=== PATIENT | male | born 1945 | race Caucasian/White ===

== ENCOUNTER 2020-02-21 03:04 | Inpatient (IN) | payer OTHER ==
[~2020-02-21] VITALS: Ht 167.6 cm; Wt 66.1 kg
[~2020-02-21 03:04] MED LIST: AUGMENTIN 875-1 EACH PO; AUGMENTIN 875875 M1 PO; LIPITOR20 MG PO; LISINOPRIL20 MG PO; NORCO 5-325 TA1 EACH PO
[2020-02-21 03:05] VITALS: BP 149/86
[2020-02-21] MEDS ORDERED: NAPROSYN500 M1 PO (03:08)
[2020-02-21 03:49] LABS: ABSOLUTE NEUTROPHILS 16.2 thou/uL (1.4-8.2); BASOPHILS 0.2 % (0.0-2.0); CALCIUM 8.5 mg/dL (8.5-10.1); CREATININE 1.3 mg/dL (0.7-1.3); HEMATOCRIT 47.8 % (42.0-52.0); HEMOGLOBIN 16.4 gm/dL (14.0-18.0); LYMPHOCYTES 6.2 % (24.0-44.0); MCH 28.4 pg (26.0-34.0); MCHC 34.3 g/dL (28.0-37.0); MCV 82.7 fL (80.0-100.0); MONOCYTES 3.8 % (1.0-8.0); PLATELET COUNT 261 thou/uL (150-400); POLYS 89.8 % (36.0-66.0); POTASSIUM 4.1 mmol/L (3.5-5.1); RBC 5.78 mil/uL (4.50-6.00); RDW 13.5 % (10.5-14.5)
[2020-02-21 03:53] LABS: APTT 27.7 Seconds (24.5-32.8); INR 1.1; PROTIME 10.9 Seconds (9.3-11.4)
[2020-02-21 03:55] LABS: ALBUMIN 3.7 g/dL (3.4-5.0); TOTAL BILIRUBIN 1.2 mg/dL (0.2-1.0)
[2020-02-21 04:58] VITALS: BP 127/87
[2020-02-21 07:08] VITALS: BP 149/76
--- NOTE | 2020-02-21 07:24 | NUR ---
Pt arrived from ED at 0530 via cart accompanied by staff. Pt is A/OX4, VSS. Admission paperwork completed w/o problems. Pt is up ad shabana,fall safety education reinforced and pt agreeable to call for help as needed. Pt passing small bright red blood frequently every time he goes to the bathroom,denies any lightheadedness/dizziness. IVF/Protonix infusing via LAC w/o any problems. Will continue to monitor pt.
[2020-02-21 10:31] LABS: ABSOLUTE NEUTROPHILS 14.3 thou/uL (1.4-8.2); BASOPHILS 0.1 % (0.0-2.0); EOSINOPHILS 0.1 % (0.0-3.0); HEMATOCRIT 44.1 % (42.0-52.0); HEMOGLOBIN 15.1 gm/dL (14.0-18.0); LYMPHOCYTES 6.9 % (24.0-44.0); MCH 28.5 pg (26.0-34.0); MCHC 34.3 g/dL (28.0-37.0); MCV 83.1 fL (80.0-100.0); MONOCYTES 5.3 % (1.0-8.0); PLATELET COUNT 218 thou/uL (150-400); POLYS 87.6 % (36.0-66.0); RBC 5.31 mil/uL (4.50-6.00); RDW 13.7 % (10.5-14.5); WBC 16.3 thou/uL (4.0-11.0)
--- NOTE | 2020-02-21 13:36 | NUR ---
PT ADMITTED RELATED TO BLOODY STOOLS. CM REVIEWED CHART AND SPOKE WITH CARE TEAM. CM CALLED AND SPOKE WITH PT AT BEDSIDE THIS DAY. PT APPEARED TO BE A&O X4. CM ROLE INTRODUCED. PT INDICATED HE LIVES IN A HOUSE WITH HIS SPOUSE WITH 1 STEP TO ENTER AND 13 STEPS TO THE BASEMENT. 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 PT INDICATED NO HH OR OP HX. PT INDICATED HE PLANS TO RETURN HOME ONCE MEDICALLY STABLE.
[2020-02-21 15:30] VITALS: BP 175/91
--- NOTE | 2020-02-21 18:18 | NUR ---
PT IS AOX4, VSS, NO C/O PAIN AT THIS TIME. PT IS UP AD MAXIMILIANO. PT TOLERATING A CLEAR LIQUID DIET. PT RECEIVED MIRALAX, WILL BE NPO AT MIDNIGHT FOR PROCEDURE. IV PATENT WITH ANTIBIOTIC'S ORDERED. CALL LIGHT IN REACH. WILL CONTINUE TO MONITOR.
[2020-02-21 19:16] VITALS: BP 165/84
[2020-02-21 23:35] LABS: URINE BILIRUBIN NEGATIVE (Negative); URINE BLOOD NEGATIVE (Negative); URINE CLARITY CLEAR; URINE COLOR YELLOW; URINE GLUCOSE-RANDOM* NEGATIVE (Negative); URINE KETONES 1+ (Negative); URINE LEUKOCYTES-REFLEX NEGATIVE (Negative); URINE NITRITE-REFLEX NEGATIVE (Negative); URINE PROTEIN (DIPSTICK) NEGATIVE (Negative); URINE SPECIFIC GRAVITY 1.025 (1.005-1.035); URINE UROBILINOGEN 0.2 E.U./dl (0.2-1.0)
--- NOTE | 2020-02-22 04:12 | NUR ---
Assumed pt care at 1900. Pt A/OX4,VSS.Denies pain on assessment.Pt is up ad shabana,encouraged to call for help as needed. Pt completed bowel prep on a timely manner, pt having loose stools with some bright blood noted as well. Pt has been NPO since midnight, IVF infusing via LAC w/o problems. Pt resting quietly at this time, will continue to monitor pt.
[2020-02-22 05:37] VITALS: BP 148/76
[2020-02-22 05:37] LABS: ABSOLUTE NEUTROPHILS 10.1 thou/uL (1.4-8.2); BASOPHILS 0.2 % (0.0-2.0); EOSINOPHILS 0.9 % (0.0-3.0); HEMATOCRIT 40.5 % (42.0-52.0); MCH 28.5 pg (26.0-34.0); MCHC 34.7 g/dL (28.0-37.0); MONOCYTES 7.9 % (1.0-8.0); PLATELET COUNT 195 thou/uL (150-400); RBC 4.93 mil/uL (4.50-6.00); RDW 13.7 % (10.5-14.5); WBC 12.6 thou/uL (4.0-11.0)
[2020-02-22 06:30] LABS: CALCIUM 8.1 mg/dL (8.5-10.1); CREATININE 0.9 mg/dL (0.7-1.3); POTASSIUM 3.6 mmol/L (3.5-5.1)
[2020-02-22 06:48] VITALS: BP 145/88
--- NOTE | 2020-02-22 10:44 | P ---
[facility] [place] [address] PROCEDURE REPORT Name: WILL DWYER Room #: 449-I ADM IN M.R.#: [id number] Admission: 02/21/20 Attend Phys: Parveen Hernández MD Discharge: Date of : 43 Report #: [id number] THIS REPORT FOR: cc: Pop Garay MD,Jonathan South MD, MD ~ CC: Isaac Hernández INPATIENT COLONOSCOPY REPORT BRIEF HISTORY: The patient is a 74-year-old male who presented with painless rectal bleeding. CT does reveal evidence of colitis. He reports about 6 months ago, he had rectal bleeding as well. PREOPERATIVE DIAGNOSES: Gastrointestinal bleeding and abnormal CAT scan of the colon. POSTOPERATIVE DIAGNOSES: 1. Moderate to severe colitis involving distal transverse through the proximal sigmoid. 2. Small internal hemorrhoids. MEDICATIONS: Deep sedation with propofol per anesthesia. SPECIMEN: Biopsies of colitis. ESTIMATED BLOOD LOSS: 3 mL. PROCEDURE: Colonoscopy to cecum and terminal ileum with biopsy. FINDINGS: Prior to propofol sedation, the procedure of colonoscopy was discussed with the patient as well as potential risks and its complications. He indicates he understands and desires to proceed. DESCRIPTION OF PROCEDURE: With the patient in left lateral decubitus position, digital examination was completed, which revealed no abnormalities. Subsequently, the Olympus video colonoscope was introduced into the rectum, advanced under direct vision to the cecum. This was done without any difficulty whatsoever. We were very quickly able to reach the cecum. Unfortunately, the cecum was filled with some semi-solid stool, which could not be aspirated. The appendiceal orifice could not be seen. I was able to visualize the ileocecal valve and visualize the distal segment of terminal ileum, which was unremarkable. There was no evidence of inflammatory disease in the ileum. At that point, the scope was slowly withdrawn and careful circumferential views were obtained. Overall, the prep was limited in some areas of the colon. In [facility] [address] [place] [address] PROCEDURE REPORT Name: WILL DWYER MCLEOD Room #: 449-I ADM IN M.R.#: [id number] Admission: 02/21/20 Attend Phys: Parveen Hernández MD Discharge: Date of : 43 Report #: [id number] particular, the proximal colon, there were areas of semi-solid stool. Within the limitations, mucosa visualized was unremarkable. As we withdrew the scope, no abnormalities were noted until the distal transverse colon was reached, in which the mucosa became erythematous and edematous with some superficial erosions. As we withdrew the scope into the descending colon, he was noted to have moderately severe superficial ulcerations with full circumferential involvement of the colonic mucosa. There was friability. Active bleeding was not seen, but upon contact there was some oozing of blood. As we withdrew the scope, the colitis became less severe, into the proximal sigmoid colon. We obtained biopsies of lesser involved areas. The midsigmoid down to the anal verge was unremarkable with normal-appearing mucosa. I did not see diverticular disease. However, there was some prominence of sigmoid folds, but again diverticula were not seen. Scope was withdrawn in the rectum, no abnormalities were seen. Upon retroflexion, small hemorrhoids were seen. Scope was withdrawn. The patient tolerated the procedure well. DISPOSITION: The patient with GI bleed and abnormal CT. Interestingly, he had painless bleeding and no diarrhea. He has an acute colitis, which was ulcerated. I doubt this represents inflammatory bowel disease. This could be ischemic or infectious. We will follow up on biopsies obtained today. I do not see evidence of C. diff. We will treat symptomatically at this point in time. Cipro and metronidazole are reasonable at this point in time. In addition, with regards to colorectal screening, the study is not adequate due to the retained stool and poor visualization of the proximal colon. <ELECTRONICALLY SIGNED> By: Jonathan Gracia MD 02/22/20 1044 0925 0945 Jonathan Gracia MD /nt
--- NOTE | 2020-02-22 10:44 | P ---
[facility] [place] [address] PROCEDURE REPORT Name: WILL DWYER Room #: 449-I ADM IN M.R.#: [id number] Admission: 02/21/20 Attend Phys: Parveen Hernández MD Discharge: Date of : 43 Report #: [id number] THIS REPORT FOR: cc: Pop Garay MD,Jonathan South MD, MD ~ CC: Isaac Hernández BRIEF HISTORY: The patient is a 74-year-old male who presented with GI bleeding. He also uses nonsteroidals on a regular basis. PREOPERATIVE DIAGNOSIS: Gastrointestinal bleeding. POSTOPERATIVE DIAGNOSES: 1. Moderate erosive gastritis. 2. Grade A erosive esophagitis. 3. Small, less than 2 cm sliding type hiatus hernia. SPECIMEN: Biopsies of gastritis, rule out Helicobacter pylori. ESTIMATED BLOOD LOSS: 3 mL. PROCEDURE: Esophagogastroduodenoscopy with biopsy. FINDINGS: Prior to propofol sedation, procedure of upper endoscopy was discussed with the patient as well as potential risks and its complications. He indicates he understands and desires to proceed. DESCRIPTION OF PROCEDURE: With the patient in left lateral decubitus position, the Olympus video endoscope was inserted in the cervical esophagus under direct vision without difficulty. Examination of this organ through its entire length revealed normal esophageal mucosa down the squamocolumnar junction. Squamocolumnar junction was inspected and a prominent erosion was seen at the squamocolumnar junction consistent with grade A erosive esophagitis. There was no evidence of Boyce mucosa. No strictures or masses were seen. Intermittently, a less than 2 cm sliding type hiatus hernia was seen. The mucosa and hernia was unremarkable. Scope was advanced in the stomach which was examined on end view as well as retroflexed views. There were noted to be multiple erosions scattered throughout the stomach, primarily the body and the antrum of the stomach. There were no ulcers. There was no evidence of bleeding. No mass lesions were seen. Upon retroflexion, no mass lesions were seen. The pylorus, duodenal bulb and postbulbar duodenal sweep was inspected and noted to be unremarkable. At that point, the scope was slowly withdrawn and careful circumferential views confirmed the above findings. The patient tolerated the procedure well. [address] [address] PROCEDURE REPORT Name: WILL DWYER Room #: 449-I ADM IN M.R.#: [id number] Admission: 02/21/20 Attend Phys: Parveen Hernández MD Discharge: Date of : 43 Report #: [id number] CONDITION OF THE PATIENT UPON DISCHARGE: Following procedure, the patient drowsy, aroused, conversant, and will be discharged home when fully ambulatory. INSTRUCTIONS TO THE PATIENT AND FAMILY AT THE TIME OF DISCHARGE: We will follow up on pathology and make further recommendations. He does have erosions, but no evidence of upper GI bleeding. He does have evidence of esophagitis. We will place on a PPI. I advised him to be cautious with use of nonsteroidals. Proceed with colonoscopy. <ELECTRONICALLY SIGNED> By: Jonathan Gracia MD 02/22/20 1044 0854 0916 Jonathan Gracia MD /nt
[2020-02-22 15:51] VITALS: BP 135/89
[2020-02-22 20:46] VITALS: BP 171/80
[2020-02-23 05:06] VITALS: BP 133/75
[2020-02-23 05:37] LABS: HEMATOCRIT 39.3 % (42.0-52.0); HEMOGLOBIN 13.5 gm/dL (14.0-18.0); MCH 28.6 pg (26.0-34.0); MCHC 34.5 g/dL (28.0-37.0); RBC 4.73 mil/uL (4.50-6.00); RDW 13.5 % (10.5-14.5); WBC 9.9 thou/uL (4.0-11.0)
[2020-02-23 06:03] LABS: CALCIUM 7.7 mg/dL (8.5-10.1); CREATININE 0.8 mg/dL (0.7-1.3); POTASSIUM 3.7 mmol/L (3.5-5.1)
--- NOTE | 2020-02-23 06:20 | NUR ---
Assumed pt care at 1900. Pt is A/OX4,VSS. Up ad shabana w/o any problems. Pt completed bowel prep on a timely manner, reports passing watery stools with little bright blood. Denies any pain or discomfort. Pt has been NPO since midnight for an ABD Ultrasound. IVF infusing w/o problems. Pt encouraged to call for help as needed. Resting quietly at this time w/o any distress noted, will continue to monitor pt.
[2020-02-23 07:17] VITALS: BP 122/78
--- NOTE | 2020-02-23 11:47 | NUR ---
ASSUMED CARE AT 0700. PT IS ALERT AND ORIENTED. ONLY CONCERN IS WANTING TO GO HOME AFTER PROCEDURE. VSSA/RA. NPO AT THE TIME, NOW TOLERATING DIET. VOIDING AND STOOLING WITHOUT ISSUE. PIV INFUSING. PT IS UAL AND INDEPENDENT IN THE ROOM. WILL CONITNUE TO MONITOR
[2020-02-23] MEDS ORDERED: PROTONIX40 M1 PO (13:11)
[2020-02-23] MEDS ORDERED: LEVAQUIN 750 M750 MG PO (13:13)
[2020-02-23] MEDS ORDERED: FLAGYL500 M1 PO (13:14)
[2020-02-23 13:26] VITALS: BP 122/78
--- NOTE | 2020-02-26 10:07 | PATH ---
[facility] [address] [place] [address] PATHOLOGY RPT PROCEDURE Name: WILL SIFUENTES Room #: 449-I DIS IN M.R.#: [id number] Admission: 02/21/20 Date of : 43 Discharge: 02/23/20 Report #: [id number] Path Case #: [id number] [facility] Accession Number: [id number] . 01 Material submitted: . PART A: gastrointestinal site - BIOPSY OF GASTRITIS RULE OUT H PYLORI PART B: colon - BIOPSY OF DESCENDING COLON RECTAL BLEEDING ACUTE COLITIS. Modifiers: descending . 01 Clinical history: . Lower GI bleed, chronic NSAID use Esophagitis, gastritis, hiatal hernia, colitis A. Rule out H. pylori B. Rectal bleeding, acute colitis . 02 Diagnosis: A. Gastric mucosa, gastritis rule out H. pylori, endoscopic biopsy: - Mild reactive gastropathy. - Negative for intestinal metaplasia or atrophy. - Negative for Helicobacter pylori (properly controlled immunohistochemical stain performed). . B. Large intestinal mucosa, descending colon, endoscopic biopsy: - Changes compatible with ischemic colitis, see comment. - Negative for dysplasia or malignancy. [facility] 02/23/2020 1129 Local . 02 Comment: Examination shows fibrotic and hemorrhagic lamina propria underneath a regenerative surface epithelium. Fibrin thrombi are not identified within vessels. Viral inclusions or granulomata are not identified. Active ulceration or explosive "mushroom" type fibrinopurulent debris is not identified within the biopsy tissue. Overall, findings are compatible with ischemic colitis. The differential diagnosis includes pseudomembranous colitis as well as partially sampled diverticulitis. Please correlate clinically. (IUV/db; 02/23/2020) . 02 Electronically signed: . Nadeen Diamond MD, Pathologist NPI- [id number] . 01 Gross description: . A. The specimen is received in formalin, labeled "Will Sifuentes, BX of gastritis" and consists of 5 fragments of pink-cruz tissue measuring 1.0 x 0.8 x 0.3 cm in aggregate which are entirely submitted in A1. . [address] [address] PATHOLOGY RPT PROCEDURE Name: WILL SIFUENTES Room #: 449-I DIS IN M.R.#: [id number] Admission: 02/21/20 Date of : 43 Discharge: 02/23/20 Report #: [id number] Path Case #: [id number] B. The specimen is received in formalin, labeled "Will Sifuentes BX of descending colon" and consists of multiple fragments of pink-cruz tissue measuring 1.3 x 0.5 x 0.3 cm in aggregate which are entirely submitted in B1. (SDY; 02/22/2020) SYU/SYU 02/22/2020 1550 Local . 02 Pathologist provided ICD-10: K31.9, K62.5 . 02 CPT . 173073, 972429, T84212 Specimen Comment: A courtesy copy of this report has been sent to [phone] Specimen Comment: Report sent to Specimen Comment: A duplicate report has been generated due to demographic updates. Performed at: [address] [facility], [place], [place] [id number] MD Rafal Rand MD Phone: [phone] Performed at: [address] [id number] MD Nadeen Diamond MD Phone: [phone]
== END 2020-02-23 13:54 | disposition home or self-care (01) | DRG 871 ==
LOC: ER 03:04 → 4W 04:43 → EROBS 04:43 → 4W 05:40
PROVIDERS: Emergency Medicine; Nurse Practitioner; ADMIT Internal Medicine; ATTEND Internal Medicine
DX: A41.9 Sepsis, unspecified organism (principal); K29.71 Gastritis, unspecified, with bleeding; N17.0 Acute kidney failure with tubular necrosis; K62.5 Hemorrhage of anus and rectum; K52.9 Noninfective gastroenteritis and colitis, unspecified; D72.829 Elevated white blood cell count, unspecified; N18.3 Chronic kidney disease, stage 3 (moderate); K44.9 Diaphragmatic hernia without obstruction or gangrene; I12.9 Hypertensive chronic kidney disease with stage 1 through stage 4 chronic kidney disease, or unspecified chronic kidney disease; E78.5 Hyperlipidemia, unspecified; K20.9 Esophagitis, unspecified; K64.8 Other hemorrhoids; N40.0 Benign prostatic hyperplasia without lower urinary tract symptoms; M19.90 Unspecified osteoarthritis, unspecified site; G47.00 Insomnia, unspecified; Z20.828 Contact with and (suspected) exposure to other viral communicable diseases; Z79.2 Long term (current) use of antibiotics; Z79.899 Other long term (current) drug therapy
CPT/HCPCS: 10040; 62110; 62900; 70005